=== PATIENT | female | born 2000 | race African-American/Black ===

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

== ENCOUNTER 2018-05-31 15:22 | Emergency (ER) | payer SELFPAY ==
[2018-05-31 15:51] LABS: Bilirubin Negative (Negative); Blood, Urine Negative (Negative); Glucose, Urine (Dipstick) Negative (Negative); Leukocyte Small (Negative); Nitrite Negative (Negative); Protein, Urine (Dipstick) Negative (Neg-Trace); Specific Gravity, Urine 1.025 (1.005-1.030); Urobilinogen 0.2 mg/dL (0.2-1.0); pH, Urine 5.5 (5.0-9.0)
[2018-05-31 15:53] LABS: Clarity SL HAZY (Clear)
[2018-05-31 15:55] LABS: Pregnancy Test - Urine (BHCG) Negative (Negative); Pregu Control Background? CLEAR/WHITE (CLR/WHITE); Pregu Control Bar Appear? YES (CONTROL BAR); Specific Gravity 1.025 (1.002-1.036)
[2018-05-31 16:09] LABS: Squamous Epithelial 0-3 HPF (0-3); WBC/HPF 0-3 HPF (0-3)
[2018-05-31] MEDS ORDERED: Ondansetron ODT 4 MG TAB ONE (16:32)
[2018-05-31] MEDS ORDERED: Ketorolac Tromethamine 60 MG/2 ML VIAL ONE (16:32)
== END 2018-05-31 16:42 | disposition home or self-care (01) ==
LOC: NAV ERS 15:22
DX: R11.2 Nausea with vomiting, unspecified (principal); R10.9 Unspecified abdominal pain
CPT/HCPCS: 81003; 81015; 81025; 96372; J1885; Q0162

== ENCOUNTER 2019-01-24 08:54 | Emergency (ER) | payer SELFPAY ==
[2019-01-24] MEDS ORDERED: Amoxicillin/Potassium Clav 875 MG TAB ONE (09:33)
[2019-01-24] MEDS ORDERED: Bupivacaine 0.5% 10 ML VIAL ONE (09:33)
== END 2019-01-24 10:30 | disposition home or self-care (01) ==
LOC: NAV ERS 08:54
DX: S61.112A Laceration without foreign body of left thumb with damage to nail, initial encounter (principal); W26.0XXA Contact with knife, initial encounter
CPT/HCPCS: 12001; J3490

== ENCOUNTER 2019-01-26 01:45 | Emergency (ER) | payer SELFPAY | END 2019-01-26 02:30 | disposition home or self-care (01) | LOC: NAV ERS 01:45 | DX: K52.9 Noninfective gastroenteritis and colitis, unspecified (principal); S61.12 Laceration with foreign body of thumb with damage to nail; X58.XXXD Exposure to other specified factors, subsequent encounter | CPT/HCPCS: 99283 ==

== ENCOUNTER 2019-02-03 16:47 | Emergency (ER) | payer SELFPAY | END 2019-02-03 17:07 | disposition home or self-care (01) | LOC: NAV ERS 16:47 | DX: S61.012D Laceration without foreign body of left thumb without damage to nail, subsequent encounter (principal); F60.0 Paranoid personality disorder ==

== ENCOUNTER 2019-03-06 16:27 | Emergency (ER) | payer SELFPAY ==
[2019-03-06] MEDS ORDERED: Sodium Chloride 0.9% 1,000 ML ONE (17:02)
[2019-03-06 17:27] LABS: Bilirubin Negative (Negative); Blood, Urine Large (Negative); Glucose, Urine (Dipstick) Negative (Negative); Leukocyte Moderate (Negative); Nitrite Negative (Negative); Protein, Urine (Dipstick) 100 mg/dL (Neg-Trace); Urobilinogen 0.2 mg/dL (Less than 2)
[2019-03-06 17:29] LABS: #Basophils 0.1 thou/uL (0.0-0.2); #Eosinphils 0.4 thou/uL (0.0-0.7); #Lymphocytes 2.4 thou/uL (1.20-3.40); #Monocytes 0.6 thou/uL (0.11-0.59); #Neutrophils 5.8 thou/uL (1.40-6.50); %Basophils 1.4 % (0.0-1.0); %Eosinophils 4.8 % (0.0-10.0); %Lymphocytes 25.7 % (21.0-51.0); %Monocytes 5.9 % (0.0-10.0); %Neutrophils 62.1 % (42.0-75.0); Hemoglobin 13.8 g/dL (12.0-16.0); Mean Corpuscular HGB CONC 31.6 g/dL (32.0-36.0); Mean Corpuscular Hemoglobin 26.9 pg (27.0-31.0); Mean Corpuscular Volume 85.2 fL (78.0-98.0); Mean Platelet Volume 8.4 fL (7.4-10.4); Platelet Count 360 thou/uL (130-400); RBC Distribution Width 12.5 % (11.5-14.5); Red Blood Cell (RBC) Count 5.12 mill/uL (4.20-5.40); White Blood Cell (WBC) Count 9.3 thou/uL (4.8-10.8)
[2019-03-06 17:32] LABS: Clarity Hazy (Clear)
[2019-03-06 17:33] LABS: Pregnancy Test - Urine (BHCG) Negative (Negative)
[2019-03-06 17:34] LABS: Pregu Control Background? CLEAR/WHITE (CLR/WHITE); Pregu Control Bar Appear? YES (CONTROL BAR)
[2019-03-06 17:37] LABS: ALT (SGPT) 21 U/L (8-55); AST (SGOT) 18 U/L (5-34); Albumin 4.4 g/dL (3.5-5.0); Alkaline Phosphatase 113 U/L (40-110); Anion Gap 12 mmol/L (10-20); BUN (Urea Nitrogen) 14 mg/dL (7.0-18.7); Bilirubin, Total 0.3 mg/dL (0.2-1.2); Calc. Creatinine Clearance 0 mL/min (70-130); Calcium 9.7 mg/dL (7.8-10.44); Carbon Dioxide 27 mmol/L (22-29); Chloride 105 mmol/L (98-107); Estimated GFR-MDRD 74; Globulin 4.3 g/dL (2.4-3.5); Glucose 94 mg/dL (70-105); Potassium 4.1 mmol/L (3.5-5.1); Protein, Total 8.7 g/dL (6.0-8.3); Sodium 140 mmol/L (136-145)
[2019-03-06 17:37] LABS: Bacteria/HPF 1+ HPF (None Seen); RBC/HPF Greater than 50 HPF (0-3); Squamous Epithelial 0-3 HPF (0-3); WBC/HPF Greater Than 50 HPF (0-3)
[2019-03-06] MEDS ORDERED: Ketorolac Tromethamine 30 MG/ML VIAL ONE (18:00)
== END 2019-03-06 18:40 | disposition home or self-care (01) ==
LOC: NAV ERS 16:27
DX: R10.30 Lower abdominal pain, unspecified (principal); R31.9 Hematuria, unspecified
CPT/HCPCS: 80053; 81003; 81015; 81025; 85025; 87077; 87086; 87186; 96361; 96374; J1885; J7050

== ENCOUNTER 2019-12-20 16:59 | Emergency (ER) | payer MEDICAID, OTHER ==
[2019-12-20] MEDS ORDERED: Acetaminophen 500 MG TAB ONE (17:35)
[2019-12-21 17:27] LABS: SARS-CoV-2 MS2 Negative; SARS-CoV-2 N Gene Positive; SARS-CoV-2 S Gene Positive; SARS-CoV-2 by NAA DETECTED (NotDetected); SARS-CoV-2 orf1ab Positive
== END 2019-12-20 17:40 | disposition home or self-care (01) ==
LOC: NAV ERS 16:59
DX: U07.1 COVID-19 (principal)
CPT/HCPCS: 87635; 99284; U0003